=== PATIENT | female | born 1975 | race Caucasian/White ===

== ENCOUNTER 2020-11-14 08:43 | Inpatient (IN) | payer MEDICAID, OTHER ==
[~2020-11-14] VITALS: Ht 162.6 cm; Wt 78.9 kg
[2020-11-14] MEDS ORDERED: MISOPROSTOL 100MCG TABLET VG NR (11:45)
[2020-11-14 11:52] LABS: CLARITY URINE CLEAR (CLEAR); COLOR URINE YELLOW (YELLOW); KETONES URINE NEGATIVE (NEGATIVE); LEUKOCYTE ESTERASE URINE TRACE (NEGATIVE); NITRITE URINE NEGATIVE (NEGATIVE); OCCULT BLOOD URINE NEGATIVE (NEGATIVE); PROTEIN URINE NEGATIVE (NEGATIVE); SPECIFIC GRAVITY URINE 1.015 (1.005-1.030); UROBILINOGEN URINE 0.2 E.U./dL (0.2-1.0)
[2020-11-14 11:56] LABS: BASOPHILS % 0.8 % (0.0-2.0); EOSINOPHILS % 0.7 % (0.0-5.0); HEMATOCRIT. 37.3 % (36.0-48.0); LYMPHOCYTES % 22.5 % (20.0-50.0); MEAN CORPUSCULAR HEMOGLOBIN 28.9 pg (28.0-32.0); MEAN CORPUSCULAR VOLUME 83.1 fL (81.0-99.0); MEAN PLATELET VOLUME 9.6 fl (7.4-10.4); MONOCYTES % 5.4 % (2.0-8.0); NEUTROPHILS % 70.6 % (40.0-76.0); PLATELET 278 x1000/uL (130-400); RED BLOOD CELL COUNT 4.49 mill/uL (4.2-5.4); RED CELL DISTRIBUTION WIDTH 15.1 % (11.6-14.6)
[2020-11-14] MEDS ORDERED: LACTATED RINGERS 1,000 ML IV SCH (12:00)
[2020-11-14 12:36] LABS: *AMPHETAMINES SCREEN URINE NEGATIVE (NEGATIVE); *BARBITURATES SCREEN URINE NEGATIVE (NEGATIVE); *BENZODIAZEPINES SCREEN URINE NEGATIVE (NEGATIVE); *COCAINE SCREEN URINE NEGATIVE (NEGATIVE)
[2020-11-14 12:37] LABS: CANNABINOID URINE SCREEN NEGATIVE (NEGATIVE); METHADONE URINE SCREEN NEGATIVE (NEGATIVE); OPIATES URINE SCREEN NEGATIVE (NEGATIVE); PHENCYCLIDINE URINE SCREEN NEGATIVE (NEGATIVE)
[2020-11-14] MEDS ORDERED: DEXT 5%/LR + PITOCIN 20UNITS/L 1,000 ML IV SCH (12:45)
[2020-11-14] MEDS ORDERED: ROPIVACAINE HCL/PF EPIDURAL 200 ML EPI SCH (12:45)
[2020-11-14 12:54] LABS: HEPATITIS B SURFACE ANTIGEN NEGATIVE
[2020-11-14 22:05] LABS: INR 0.9; PARTIAL THROMBOPLASTIN TIME 29.3 sec (23.4-31.0)
[2020-11-14] MEDS ORDERED: BUTORPHANOL TARTRATE 2 MG/ML VIAL IM PRN (23:30)
[2020-11-15] MEDS ORDERED: DEXT 5%/LR + PITOCIN 20UNITS/L 1,000 ML IV SCH (04:30)
[2020-11-15] MEDS ORDERED: ACETAMINOPHEN WITH CODEINE 300/30MG TABLET PO PRN (04:30)
[2020-11-15] MEDS ORDERED: BISACODYL 10MG SUPP PR PRN (04:30)
[2020-11-15] MEDS ORDERED: DIPHENHYDRAMINE 25MG CAPSULE PO PRN (04:30)
[2020-11-15] MEDS ORDERED: GLYCERIN/WITCH HAZEL LEAF MEDICATED PAD TOP PRN (04:30)
[2020-11-15] MEDS ORDERED: LANOLIN OINT 7GM TUBE TOP PRN (04:30)
[2020-11-15] MEDS ORDERED: IBUPROFEN 400MG TABLET PO PRN (04:30)
[2020-11-15] MEDS ORDERED: RHO(D) IMMUNE GLOBULIN 300 MCG/SYR IM PRN (04:30)
[2020-11-15] MEDS ORDERED: HEMORRHOIDAL SUPP PR PRN (04:30)
[2020-11-15 05:10] VITALS: BP 110/53
[2020-11-15 05:40] VITALS: BP 111/48
[2020-11-15 06:10] VITALS: BP 96/62
[2020-11-15] MEDS: MAGNESIUM/ALUMINUM HYDROXIDE/SIMETHICONE 30ML UDC PO SCH ×4 (07:30→22:08)
[2020-11-15] MEDS: SIMETHICONE 80MG TABLET CHEW PO SCH ×4 (08:00→22:09)
[2020-11-15 08:30] VITALS: BP 114/57
[2020-11-15] MEDS: PRENATAL VIT/FE FUMARATE/FA TABLET PO SCH (08:32)
[2020-11-15 14:44] VITALS: BP 102/50
[2020-11-15 20:00] VITALS: BP 105/58
[2020-11-15] MEDS: IBUPROFEN 800MG TABLET PO PRN (22:09)
[2020-11-15] MEDS: DOCUSATE SODIUM 100MG CAPSULE PO SCH (22:09)
[2020-11-16 04:00] VITALS: BP 106/59
[2020-11-16 07:40] VITALS: BP 110/78
[2020-11-16 08:17] LABS: BASOPHILS % 0.4 % (0.0-2.0); EOSINOPHILS % 0.8 % (0.0-5.0); HEMATOCRIT. 36.3 % (36.0-48.0); HEMOGLOBIN. 12.1 g/dL (12.0-16.0); MEAN CORPUSCULAR HEMOGLOBIN 28.5 pg (28.0-32.0); MEAN CORPUSCULAR VOLUME 85.4 fL (81.0-99.0); MONOCYTES % 5.2 % (2.0-8.0); NEUTROPHILS % 75.6 % (40.0-76.0); PLATELET 270 x1000/uL (130-400); RED BLOOD CELL COUNT 4.25 mill/uL (4.2-5.4); RED CELL DISTRIBUTION WIDTH 15.1 % (11.6-14.6)
[2020-11-16] MEDS: SIMETHICONE 80MG TABLET CHEW PO SCH ×4 (08:43→21:33)
[2020-11-16] MEDS: MAGNESIUM/ALUMINUM HYDROXIDE/SIMETHICONE 30ML UDC PO SCH ×4 (08:43→21:33)
[2020-11-16] MEDS: FERROUS SULFATE 325MG TABLET PO SCH ×3 (08:44→18:09)
[2020-11-16] MEDS: PRENATAL VIT/FE FUMARATE/FA TABLET PO SCH (08:44)
[2020-11-16] MEDS: IBUPROFEN 800MG TABLET PO PRN (13:03)
[2020-11-16 16:20] VITALS: BP 118/64
[2020-11-16 20:00] VITALS: BP 116/59
[2020-11-16] MEDS: DOCUSATE SODIUM 100MG CAPSULE PO SCH (21:33)
[2020-11-17 04:40] VITALS: BP 100/56
[2020-11-17] MEDS: MAGNESIUM/ALUMINUM HYDROXIDE/SIMETHICONE 30ML UDC PO SCH (07:30)
[2020-11-17 07:39] VITALS: BP 109/58
[2020-11-17] MEDS: SIMETHICONE 80MG TABLET CHEW PO SCH (08:00)
[2020-11-17] MEDS ORDERED: IBUP-2030 PO (08:35)
[2020-11-17] MEDS: PRENATAL VIT/FE FUMARATE/FA TABLET PO SCH (08:42)
[2020-11-17] MEDS: FERROUS SULFATE 325MG TABLET PO SCH (08:42)
[2020-11-17 10:52] LABS: BASOPHILS % 0.7 % (0.0-2.0); EOSINOPHILS % 1.8 % (0.0-5.0); HEMOGLOBIN. 12.1 g/dL (12.0-16.0); LYMPHOCYTES % 22.2 % (20.0-50.0); MEAN CORPUSCULAR HEMOGLOBIN 28.9 pg (28.0-32.0); MEAN CORPUSCULAR VOLUME 83.7 fL (81.0-99.0); MEAN PLATELET VOLUME 9.5 fl (7.4-10.4); MONOCYTES % 4.6 % (2.0-8.0); NEUTROPHILS % 70.7 % (40.0-76.0); PLATELET 297 x1000/uL (130-400); RED BLOOD CELL COUNT 4.17 mill/uL (4.2-5.4); RED CELL DISTRIBUTION WIDTH 14.9 % (11.6-14.6)
== END 2020-11-17 12:30 | disposition home or self-care (01) | DRG 560 ==
LOC: 8 EST LDRP 08:43 → OBSVTOIN 08:43 → 8 EST LDRP 09:56 → 8EST 11-15 06:00
PROVIDERS: ADMIT Obstetrics & Gynecology; ATTEND Obstetrics & Gynecology
PROC: 10E0XZZ Delivery of Products of Conception, External Approach (ICD-10-PCS; principal; 2020-11-15)
PROC: 0KQM0ZZ Repair Perineum Muscle, Open Approach (ICD-10-PCS; 2020-11-15)
PROC: 3E0R3BZ Introduction of Anesthetic Agent into Spinal Canal, Percutaneous Approach (ICD-10-PCS; 2020-11-15)
PROC: 00HU33Z Insertion of Infusion Device into Spinal Canal, Percutaneous Approach (ICD-10-PCS; 2020-11-15)
DX: O77.0 Labor and delivery complicated by meconium in amniotic fluid (principal); Z37.0 Single live birth; O70.1 Second degree perineal laceration during delivery; Z3A.38 38 weeks gestation of pregnancy
CPT/HCPCS: 36415; 76805; 80305; 81003; 82962; 85025; 86592; 86703; 86762; 86850; 86900; 87340; J0595; J2590; J7120